=== PATIENT | female | born 1955 | race African-American/Black ===

== ENCOUNTER 2016-06-05 14:04 | Outpatient (RCR) | payer BC | END 2016-09-03 | disposition home or self-care (01) | LOC: PT 14:04 | PROVIDERS: ATTEND Orthopaedic Surgery | DX: M17.11 Unilateral primary osteoarthritis, right knee (principal); M25.661 Stiffness of right knee, not elsewhere classified; Z53.8 Procedure and treatment not carried out for other reasons ==

== ENCOUNTER → 2016-08-21 | Outpatient (CLI) | payer BC | LOC: RAD 10:08 | PROVIDERS: ATTEND Orthopaedic Surgery | DX: M25.561 Pain in right knee (principal) | CPT/HCPCS: 78300; A9503 ==

== ENCOUNTER → 2016-10-07 | Outpatient (REF) | LOC: CLAB.CORPH 15:29 | PROVIDERS: ATTEND Family Medicine | DX: Z01.84 Encounter for antibody response examination (principal) | CPT/HCPCS: 86706 ==